=== PATIENT | female | born 1995 | race Caucasian/White ===

== ENCOUNTER → 2021-05-17 15:11 | Outpatient (CLI) | payer SELFPAY | PROVIDERS: Visit Provider Nurse Practitioner | DX: Z20.822 Contact with and (suspected) exposure to COVID-19 (principal) | CPT/HCPCS: C9803; U0003; U0005 ==

== ENCOUNTER 2021-06-28 20:28 | Emergency (ER) | payer MEDICAID, SELFPAY ==
[2021-06-28 20:29] VITALS: BP 109/58; PULSE 120; RESP 16; TEMP 38.1; O2SAT 98; BMI 21.9
[2021-06-28 20:45] LABS: Microscopic, Urine URINE MICROSCOPIC (MICROSCOPIC)
[2021-06-28 20:52] LABS: Appearance,Urine CLOUDY (Clear); Bilirubin,Urine Negative (Negative); Blood, Urine 1+ (Negative); Color,Urine YELLOW (Yellow); Glucose,Urine (UA) Negative (Negative); Ketones,Urine 3+ (Negative); Leukocyte Esterase,Urine 2+ (Negative); Nitrate,Urine POSITIVE (Negative); Protein,Urine 2+ (Negative)
[2021-06-28 20:53] LABS: Coronavirus 19, PCR Not Detected (NotDetected); Influenza A, PCR Not Detected (NotDetected); Influenza B, PCR Not Detected (NotDetected)
[2021-06-28 20:59] LABS: Urine Pregnancy, HCG Qual. Positive (Negative)
[2021-06-28 21:05] LABS: Basophils % 0.4 % (0.1-2.0); Eosinophils # 0.1 K/mm3 (0.0-0.4); Hematocrit 36.1 % (37.0-47.0); Hemoglobin 12.1 g/dL (12.2-16.2); Lymphocytes # 1.2 K/mm3 (0.7-4.5); Lymphocytes % 12.9 % (10-50); Mean Corpuscular HGB Conc 33.6 g/dL (31.8-35.4); Mean Corpuscular Hemoglobin 29.8 pg (27.0-31.2); Mean Corpuscular Volume 88.6 fl (81-99); Mean Platelet Volume 9.3 fl (7.4-10.4); Monocytes # 0.5 K/mm3 (0.1-1.0); Monocytes % 5.2 % (1.7-9.3); Neutrophils # 7.7 K/mm3 (1.8-7.8); Neutrophils % 80.4 % (37.0-80.0); Platelet Count 157 K/mm3 (142-424); Red Blood Count 4.08 M/mm3 (4.20-5.40); Red Cell Distribution Width 14.6 % (11.5-17.5); White Blood Count 9.6 K/mm3 (4.8-10.8)
--- NOTE | 2021-06-28 21:08 | [facility].EDFEV ---
ED Disposition Clinical Impression: Hypokalemia UTI (urinary tract infection) Qualifiers: Urinary tract infection type: site unspecified Hematuria presence: without hematuria Qualified Code(s): N39.0 - Urinary tract infection, site not specified Qualifiers: Weeks of gestation: less than 8 weeks Qualified Code(s): Z3A.01 - Less than 8 weeks gestation of Disposition: Home, Self-Care Condition on Discharge: Good Instructions: Diet, DI for Urinary Tract Infection (UTI) Additional Instructions: fluids and use meds and see pcp for urine culture results and see ob for follow up for Prescriptions: cephALEXin [cephALEXin 500mg capsule*] 500 mg PO TID #30 cap Transmission Status: Pending to [id number] #[id number] Referrals: Meg Moran PA [Primary Care Provider] - - Critical Care Critical Care Time: No Attestation: On 06/28/21, the high probability of a clinically significant, sudden or life threatening deterioration of the following system(s) required my full and direct attention, intervention and personal management. The time I documented below is in addition to time spent performing reported procedures but includes the following listed in this critical care notation. Medical Decision Making - Medical Records Medical records reviewed: Yes: I reviewed the patient's medical records. - Rikki Inquiry Pt receiving controlled substance: No Vital Signs: 06/28/21 20:29 Temperature 100.6 F H Temperature Source Oral Pulse Rate [Right Radial] 120 H Respiratory Rate 16 Blood Pressure [Right Arm] 109/58 L Blood Pressure Mean [Right Arm] 75 Blood Pressure Source [Right Arm] Automatic Cuff Blood Pressure Position [Right Arm] Sitting 02 Sat by Pulse Oximetry 98 Oxygen Delivery Method Room Air - Lab Data Lab results reviewed: Yes: I reviewed the patient's lab results. Lab Results 06/28/21 20:23: Urine HCG, Qual Positive 06/28/21 20:36: Urine Color Yellow, Urine Appearance Cloudy, Urine pH 6.0, Ur Specific [place] 1.010, Urine Protein 2+, Urine Glucose (UA) Negative, Urine Ketones 3+, Urine Blood 1+, Urine Nitrate Positive, Urine Bilirubin Negative, Urine Urobilinogen 1.0, Ur Leukocyte Esterase 2+ A, Urine RBC Tntc, Urine WBC Tntc, Ur Squamous Epith Cells 3-5, Urine Bacteria 4+ 06/28/21 20:42: SARS-CoV-2 (PCR) Not detected, Influenza A Untype (PCR) Not detected, Influenza Type B (PCR) Not detected 06/28/21 21:00: WBC 9.6, RBC 4.08 L, Hgb 12.1 L, Hct 36.1 L, MCV 88.6, MCH 29.8, MCHC 33.6, RDW 14.6, Plt Count 157, MPV 9.3, Neut % (Auto) 80.4 H, Lymph % (Auto) 12.9, [place] % (Auto) 5.2, Eos % (Auto) 1.0, Baso % (Auto) 0.4, Neut # (Auto) 7.7, Lymph # (Auto) 1.2, [place] # (Auto) 0.5, Eos # (Auto) 0.1, Baso # (Auto) 0.0 06/28/21 21:00: Sodium 129 L, Potassium 2.6 L*, Chloride 103, Carbon Dioxide 18 L, Anion Gap 10.6, BUN 6 L, Creatinine 0.60, Estimated Creat Clear 144, Estimated GFR 122, Est GFR ( Amer) 147, Glucose 117 H, Calcium 8.0 L, Total Bilirubin 0.6, AST 21, ALT 17, Alkaline Phosphatase 117, Total Protein 6.5, Albumin 3.4 L, Globulin 3.1, Albumin/Globulin Ratio 1.1 Result diagrams: 06/28/21 21:00 06/28/21 21:00 Orders (Tests/Meds): ED MEDICATIONS Generic Name Dose Route Start Last Admin Trade Name Freq PRN Reason Stop Dose Admin Sodium Chloride 1,000 mls @ 999 mls/hr 06/28/21 21:00 06/28/21 20:48 Sod Chlor 0.9% 1000ml Bag IV 06/28/21 22:00 999 mls/hr .[id number] [place] Administration Ceftriaxone Sodium 1 gm/ 50 mls @ 100 mls/hr 06/28/21 21:15 06/28/21 21:17 Sodium Chloride IV 07/12/21 21:14 100 mls/hr Q24H [place] Administration Discontinued Medications Generic Name Dose Route Start Last Admin Trade Name Freq PRN Reason Stop Dose Admin Ibuprofen 600 mg 06/28/21 20:47 06/28/21 21:03 Ibuprofen 600 Mg Tablet PO 06/28/21 20:48 Not Given ONCE ONE Potassium Chloride 40 meq 06/28/21 21:31 06/28/21 21:32 Potassium Chloride 20meq Ta
[2021-06-28 21:09] LABS: Bacteria,Urine 4+ /lpf; RBC,Urine TNTC #/hpf (0-3); WBC,Urine TNTC #/hpf (0-3)
[2021-06-28 21:18] LABS: Chloride 103 mmol/L (98-107); Sodium 129 mmol/L (136-145)
[2021-06-28 21:21] LABS: Alanine Aminotransferase 17 U/L (12-78); Albumin Level 3.4 g/dl (3.5-5.0); Albumin/Globulin Ratio 1.1 (1.1-1.8); Alkaline Phosphatase 117 U/L (38-126); Anion Gap 10.6 mEq/L (5-15); Aspartate Amino Transferase 21 U/L (14-36); Bilirubin,Total 0.6 mg/dl (0.2-1.3); Blood Urea Nitrogen 6 mg/dl (7-17); Carbon Dioxide 18 mmol/L (22.0-30.0); Creatinine Clearance Estimated 144 mL/min (50-200); Estimated Glomerular Filt Rate 122 ml/min (>60); GFR (African American) 147 ML/MIN (>60); Globulin 3.1 g/dL (1.3-3.2); Glucose 117 mg/dl (74-100); Total Protein,Serum 6.5 g/dl (6.3-8.2)
[2021-06-28 21:31] LABS: Potassium 2.6 mmoL/L (3.5-5.1)
[2021-06-28 21:53] VITALS: BP 108/50; PULSE 70; RESP 20; TEMP 37.1; O2SAT 99
[2021-06-28 22:06] LABS: HCG,Quantitative 18627 mIU/ml (0-5.42)
== END 2021-06-28 21:58 | disposition home or self-care (01) ==
PROVIDERS: Emergency Provider Emergency Medicine; PCP Physician Assistant Medical
DX: N30.00 Acute cystitis without hematuria (principal); E87.6 Hypokalemia; Z3A.01 Less than 8 weeks gestation of pregnancy
CPT/HCPCS: 80053; 81001; 81025; 84702; 85025; 87086; 87088; 87186; 96365; 96367; 99284; C9803; J0696; U0003; U0005